=== PATIENT | female | born 1970 | race Caucasian/White ===

== ENCOUNTER 2019-07-23 10:51 | Emergency (ER) | payer BC ==
--- OUTSIDE RECORDS SUMMARY | 2019-07-23 11:10 | XMS REPORT | Summary of Care ---
:1970 Author Organization [facility] Address [address] [address] Care Team Providers Name Role Phone Kelsie Branham MD Primary Care Provider Reason for Referral Refer to Department Only (Routine) Status Reason Specialty Diagnoses / Referred By Referred To Procedures Contact Contact Pending Review Physical Therapy Diagnoses Rotator cuff tendinitis, right Santhosh Douglass MD [address] [facility] [place] [address] [place] [address] Reason for Visit Reason Comments Follow Up Right shoulder pain. Patient is here to discuss MRI results. Encounter Details Date Type Department Care Team Description 07/09/2019 Office Visit [facility] - Santhosh Douglass MD Rotator cuff [address] tendinitis, right [address] [facility] [address] (Primary Dx) [place] [address] [phone] Allergies No Known Allergiesdocumented as of this encounter (statuses as of 07/10/2019) Medications Medication Sig Dispensed Refills Start Date End Date Status Nebivolol HCl Bystolic 5 mg tablet 0 Active (BYSTOLIC) 5 MG Oral Take 1 tablet every day by oral route. Tab Polyethylene Glycol Take by mouth. 0 Active 3350 (MIRALAX PO) ranitidine (ZANTAC) Take 150 mg by 0 Active 150 MG Oral Tab mouth. documented as of this encounter (statuses as of 07/10/2019) Active Problems Not on filedocumented as of this encounter (statuses as of 07/10/2019) Social History Tobacco Use Types Packs/Day Years Used Date Never Smoker Smokeless Tobacco: Never Used Sex Assigned at Date Recorded Not on file Job Start Date Occupation Industry Not on file Not on file Not on file Travel History Travel Start Travel End No recent travel history available. documented as of this encounter Last Filed Vital Signs Vital Sign Reading Time Taken Comments Blood Pressure 134/81 07/09/2019 9:08 AM EDT Pulse 70 07/09/2019 9:08 AM EDT Temperature - - Respiratory Rate - - Oxygen Saturation - - Inhaled Oxygen Concentration - - Weight 106.6 kg (235 lb) 07/09/2019 9:08 AM EDT Height 167.6 cm (5' 6") 07/09/2019 9:08 AM EDT Body Mass Index 37.93 07/09/2019 9:08 AM EDT documented in this encounter Progress Notes Santohsh Douglass MD - 07/09/2019 9:00 AM EDT Name: Bao Cramer : 1970 Date of Service: 07/09/2019 Chief Complaint Patient presents with Follow Up Right shoulder pain. Patient is here to discuss MRI results. History of Present Illness: Bao Cramer is a 49-y.o. female. The above is noted. Patient is in today for follow-up of right shoulder rotator cuff tendinitis. Patient was last seen in the office on 06/17/2019. She has had a recent MRI for me to evaluate whichis available to me today Physical Examination: BP 134/81 | Pulse 70 | Ht 5' 6" (1.676 m) | Wt 235 lb (106.6 kg) | BMI 37.93 kg/m Well-developed well-nourished female in minimal discomfort at rest. Patient has tenderness on the following range of motion forward elevation 100 degrees abduction 130 degrees. MRI reveals evidence of rotator cuff tendinitis. Patient has not had a course of physical therapy. Impression: 1. Rotator cuff tendinitis, right Plan: Will refer patient for physical therapy and the patient will follow up with Romina Wan in 6 weeks. All questions were answered. There are no Patient Instructions on file for this visit. Author: Santhosh Douglass MD 07/10/2019 19:34 documented in this encounter Plan of Treatment Date Type Specialty Care Team Description 08/20/2019 Office Visit Orthopedics Romina Wan, [facility] [address] [place] [address] Name Type Priority Associated Diagnoses Order Schedule REFER TO PHYSICAL Referral Routine Rotator cuff tendinitis, Expected: 07/09, THERAPY / REHAB right Expires: 07/08/2020 Health Maintenance Due Date Last Done Comments PAP SMEAR 1970 DEPRESSION SCREENING 1982 HIV SCREENING 1985 DIABETES SCREENING 1988 LIPID DISORDER SCREENING 1988 MAMMOGRAM (SCREENING) 2010 INFLUENZA VACCINE (#1) 2019 HPV IMMUNIZATION SERIES Aged Out No longer eligible based on patient's age to complete this topic MENINGOCOCCAL VACCINE IMM Aged Out No longer eligible based on patient's age to complete this topic PNEUMOCOCCAL 0-64 YRS Aged Out No longer eligible based on patient's age to complete this topic documented as of this encounter Results Not on filedocumented in this encounter Visit Diagnoses Diagnosis Rotator cuff tendinitis, right - Primary documented in this encounter Insurance Payer Benefit Plan / Subscriber ID Effective Dates Phone Address Type Group [employer] xxxxxxxxxxxx 2019-Present [employer] documented as of this encounter
--- NOTE | 2019-07-23 13:00 | ED ---
Back Pain - HPI Summary HPI Summary: Patient is a 49-year-old female who presents emergency department for low back pain x several days. Pt. states she has a hx of back pain and had an MRI last year that showed disc herniation. Pt. recently new to the area. Pt. denies any specific falls or injury. Pt. states last week she was having pain on right low back and today it is on the left. Pain wraps around into groin. Denies numbness , tingling or weakness. Denies fever, urinary sxs, abd. pain, bowel or bladder incontinence or retention. Sxs are mild in severity. Movement makes sxs worse. Nothing makes sxs better. - History of Current Complaint Chief Complaint: EDBackInjuryPain Stated Complaint: THREW BACK OUT PER PT Time Seen by Provider: 07/23/19 12:59 Hx Obtained From: Patient Pain Intensity: 9 - Allergies/Home Medications Allergies/Adverse Reactions: Allergies Allergy/AdvReac Type Severity Reaction Status Date / Time No Known Allergies Allergy Verified 07/23/19 10:56 Home Medications: Home Medications Nebivolol HCl [Bystolic] 5 mg PO BEDTIME 07/23/19 [History Confirmed 07/23/19] PMH/Surg Hx/FS Hx/Imm Hx Previously Healthy: Yes Infectious Disease History: No Infectious Disease History: Denies: Traveled Outside the [place] in Last 30 Days - Family History Known Family History: Positive: Non-Contributory - Social History Occupation: Employed Full-time Lives: With Family Alcohol Use: None Substance Use Type: Reports: None Smoking Status (MU): Never Smoked Tobacco Review of Systems Constitutional: Negative Negative: Fever, Chills Cardiovascular: Negative Respiratory: Negative Gastrointestinal: Negative Genitourinary: Negative Negative: dysuria, flank pain Positive: Other - left low back pain Skin: Negative All Other Systems Reviewed And Are Negative: Yes Physical Exam Triage Information Reviewed: Yes Vital Signs On Initial Exam: Initial Vitals Temp Pulse Resp BP Pulse Ox 98.6 F 67 18 135/93 100 07/23/19 10:52 07/23/19 10:52 07/23/19 10:52 07/23/19 10:52 07/23/19 10:52 Vital Signs Reviewed: Yes Appearance: Positive: Well-Appearing - Pt. lying in hallway bed in NAD. Skin: Positive: Warm, Dry Head/Face: Positive: Normal Head/Face Inspection Eyes: Positive: Normal, EOMI Neck: Positive: Supple Respiratory/Lung Sounds: Positive: Clear to Auscultation, Breath Sounds Present Cardiovascular: Positive: Normal, RRR Musculoskeletal: Positive: Other - 5/5 strength in bilateral UEs and LEs. Negative straight leg. No midline lumbar tenderness. Pain over left SI joint. Neurological: Positive: Normal, CN Intact II-III Psychiatric: Positive: Affect/Mood Appropriate Diagnostics - Vital Signs Vital Signs Temp Pulse Resp BP Pulse Ox 07/23/19 10:52 98.6 F 67 18 135/93 100 - Laboratory Lab Statement: Any lab studies that have been ordered have been reviewed, and results considered in the medical decision making process. Back Pain Course/Dx - Course Course Of Treatment: Pt. with low back pain. No neuro deficits. Afebrile. xrays of spine and hip negative per radiology. Pt. notes she does not like to take medication and states she cannot take NSAIDS bc of GI issues. Will try on course of steroids. Advised warm compresses and gentle stretching. P.t notes she has an apt. with neuro sxs at [facility] coming up. Given return precautions. - Diagnoses Differential Diagnosis/HQI/PQRI: Positive: Arthritis, Epidural Abscess, Herniated Disc, Renal Colic, Strain, Sprain Provider Diagnoses: Lumbar strain, Sacroiliitis Discharge ED - Sign-Out/Discharge Documenting (check all that apply): Patient Departure Patient Received Moderate/Deep Sedation with Procedure: No - Discharge Plan Condition: Good Disposition: HOME Prescriptions: predniSONE TAB* [Deltasone 20 MG TAB*] 40 mg PO DAILY #10 tab Patient Education Materials: Low Back Strain (ED), Sacroiliitis (ED), Lower Back Exercises (ED) Referrals: Fausto Haider [Medical Doctor] - Kelsie Branham MD [Primary Care Provider] - Patricia Duque MD [Medical Doctor] - Additional Instructions: Schedule a follow up appointment with PCP for further evaluation and referral Take prednisone as directed Tylenol for pain as directed Apply warm compresses Return to ER for increased pain, fever, leg numbness/weakness, bowel or bladder incontinence or retention, or if concerned - Billing Disposition and Condition Condition: GOOD Disposition: Home
[2019-07-23 15:44] VITALS: BP 134/76
== END 2019-07-23 15:05 | disposition home or self-care (01) ==
LOC: MERGE 10:51 → ED 10:51
DX: S39.012A Strain of muscle, fascia and tendon of lower back, initial encounter (principal); X58.XXXA Exposure to other specified factors, initial encounter; Y92.9 Unspecified place or not applicable; M46.1 Sacroiliitis, not elsewhere classified
CPT/HCPCS: 72110; 99282

== ENCOUNTER 2020-01-08 08:53 | Emergency (ER) | payer BC ==
--- OUTSIDE RECORDS SUMMARY | 2020-01-08 09:04 | XMS REPORT | Summary of Care ---
:1970 Author Organization [facility] Address [address] [facility] [address] [place] [address] Care Team Providers Name Role Phone Kelsie Branham MD Primary Care Provider Reason for Visit Reason Comments Follow Up Right shoulder pain. Patient states her right shoulder is doing a lot better, still a little sore, but better. Patient is not sure exactly how the injection worked. Encounter Details Date Type Department Care Team Description 11/26/2019 Office Visit [facility] - Santhosh Douglass MD Rotator cuff [place] [address] [facility] tendinitis, right [address] [facility] [address] (Primary [address]x) [place] [address] [place] [address] [phone] Allergies No Known Allergiesdocumented as of this encounter (statuses as of 12/04/2019) Medications Medication Sig Dispensed Refills Start Date End Date Status Nebivolol HCl Bystolic 5 mg tablet 0 Active (BYSTOLIC) 5 MG Oral Take 1 tablet every day by oral route. Tab Polyethylene Glycol Take by mouth. 0 Active 3350 (MIRALAX PO) OMEPRAZOLE PO Take by mouth. 0 Active documented as of this encounter (statuses as of 12/04/2019) Active Problems Problem Noted Date Rotator cuff tendinitis, right 09/23/2019 Low back pain 10/09/2018 History of hypertension 10/09/2018 Neck pain 10/09/2018 documented as of this encounter (statuses as of 12/04/2019) Social History Tobacco Use Types Packs/Day Years [...] Sign Reading Time Taken Comments Blood Pressure 120/76 11/26/2019 2:53 PM EST Pulse 67 11/26/2019 2:53 PM EST Temperature - - Respiratory Rate - - Oxygen Saturation - - Inhaled Oxygen Concentration - - Weight 106.6 kg (235 lb) 11/26/2019 2:53 PM EST Height 167.6 cm (5' 6") 11/26/2019 2:53 PM EST Body Mass Index 37.93 11/26/2019 2:53 PM EST documented in this encounter Progress Notes Santhosh Douglass MD - 11/26/2019 3:00 PM EST Name: Bao Cramer : 1970 Date of Service: 11/26/2019 Chief Complaint Patient presents with Follow Up Right shoulder pain. Patient states her right shoulder is doing a lot better, still a little sore,but better. Patient is not sure exactly how the injection worked. History of Present Illness: Bao Cramer is a 49-y.o. female. The above is noted. Is in today for follow-up of right shoulder discomfort. She was last seen by Romina Wan. The patient had an injection of her right shoulder and she states that she is uncertain as to how effective the shoulder injection was. Physical Examination: BP 120/76 | Pulse 67 | Ht 5' 6" (1.676 m) | Wt 235 lb (106.6 kg) | BMI 37.93 kg/m Well-developed well-nourished female in minimal discomfort at rest. Patient is neurovascularly intact. Patient has forward elevation of right shoulder 180 degrees abduction 170 degrees. Patient is neurovascularly intact. Mild discomfort on palpation of her anterior inferior acromion. Impression: Patient will perform rotator cuff exercises in PT and the plan is to follow-up with Dania Wan in 4 weeks Plan: Follow up in 4 weeks All questions were answered. There are no Patient Instructions on file for this visit. Author: Santhosh Douglass MD 11/26/2019 15:00 documented in this encounter Plan of Treatment Date Type Specialty Care Team Description 12/24/2019 Office Visit [facility]oped[facility] Romina Wan, [facility] [address] [facility] [place] [address] Health Maintenance Due Date Last Done Comments DTaP/Tdap/Td Vaccines (1 - Tdap) 1981 DEPRESSION SCREENING 1982 HIV SCREENING 1985 DIABETES SCREENING 1988 LIPID DISORDER SCREENING 1988 PAP SMEAR 1991 MAMMOGRAM (SCREENING) 2010 INFLUENZA VACCINE (#1) 2019 HEPATITIS A IMMUNIZATION SERIES Aged Out No longer eligible based on patient's age to complete this topic HPV IMMUNIZATION SERIES Aged Out No longer [...] Visit Diagnoses Diagnosis Rotator cuff tendinitis, right documented in this encounter Insurance Payer Benefit Plan / Subscriber ID Effective Dates Phone Address Type Group [employer] xxxxxxxxxxxx 2019-Present [employer] documented as of this encounter
--- OUTSIDE RECORDS SUMMARY | 2020-01-08 09:04 | XMS REPORT | Continuity of Care Document ---
:1970 External Reference #:[id number] Author Name Heather Funez MD (transmitted by agent of provider Deborah Reeves) Address [address] [facility], [address] [place] [id number] Care Team Providers Name Role Phone Desiree Benton MD - Obstetrics & Care Team Information Linoleum Installer Gynecology Kelsie Branham M.D. - Family Medicine Care Team Information Linoleum Installer Problems Active Problems Provider Date Essential hypertension Aimee Og MD Onset: 09/26/2019 Menopausal syndrome Aimee Og MD Onset: 09/26/2019 Social History Type Date Description Comments Sex Unknown Tobacco Use Start: Unknown Never Smoked Cigarettes ETOH Use Denies alcohol use Tobacco Use Start: Unknown Patient has never smoked Recreational Drug Use Never Used Drugs Tobacco Use Start: Unknown smokes outside Smoking Status Reviewed: 11/19/19 smokes outside Exercise Type/Frequency Does not exercise Limited by back pain Allergies, Adverse Reactions, Alerts Description No Known Drug Allergies Medications Active Medications SIG Qnty Indications Ordering Date Provider Ventolin HFA 2 every 4 hours 18gm R05 Howard Smart MD 11/05/2019 as needed 108(90Base) mcg/Act Aerosol Estradiol 0.5gram vaginally 42.500gm N39.3 Desiree Benton 09/23/2019 0.1mg/GM every night at Cream bedtime x 14 nights then 2x/week (not yet 11/05/19) Bystolic 1 by mouth every 90tabs Kelsie Branham MD 03/29/2019 5mg Tablets day Omeprazole 1 by mouth every 90caps Aimee Og 03/29/[address] Wright take 1-2 as 30tabs Kelsie Branham MD 03/29/2019 0.25mg needed Tablets Maxalt-FOUNDER / CEO one as needed for Other Ordering 03/29/2019 10mg Pearson, may repeat in Provider Tablets Dispers 2 hrs. Max 2 in 24 hr Tylenol Extra 1 tabs by mouth Unknown Strength every 6 hours as 500mg needed Tablets Cortisone Injection As needed Unknown Immunizations CPT Code Status Date Vaccine Reaction Lot # 96534 Given 11/19/2019 Influenza Virus Vaccine, No immmediate reaction [id number] Quadrivalent ([id number]), Derived From Cell 48270 Given 03/29/2019 Hepatitis B Vaccine Adult No immediate [id number] Dosage reaction..jh Vital Signs Date Vital Result Comment 11/19/2019 4:03pm Height 65.75 inches 5'5.75" Weight 236.00 lb Heart Rate 70 /min BP Systolic Sitting 114 mmHg BP Diastolic Sitting 79 mmHg Body Temperature 99.1 F O2 % BldC Oximetry 98 % BMI (Body Mass Index) 38.4 kg/m2 11/05/2019 2:13pm Height 65.75 inches 5'5.75" Weight 236.25 lb Heart Rate 76 /min BP Systolic Sitting 122 mmHg Lue large cuff BP Diastolic Sitting 92 mmHg Lue large cuff O2 % BldC Oximetry 98 % On Ra BMI (Body Mass Index) 38.4 kg/m2 Results Test Acquired Date Facility Test Result H/L Range Note Lipid Profile 11/18/2019 [facility] Triglycerides 126 mg/dL 1 (Trig/Chol/HDL) [address] [place] [address] [phone] Cholesterol 202 mg/dL 2 HDL Cholesterol 55.6 mg/dL 3 LDL Cholesterol 121 mg/dL 4 Comp Metabolic 11/18/2019 [facility] Sodium 141 mmol/L Normal 135-145 Panel [address] [place] [address] [phone] Potassium 4.6 mmol/L Normal 3.5-5.0 Chloride 103 mmol/L Normal 101-111 Co2 Carbon Dioxide 32 mmol/L Normal 22-32 Anion Gap 6 mmol/L Normal 2-11 Glucose 97 mg/dL Normal 70-100 Blood Urea Nitrogen 13 mg/dL Normal 6-24 Creatinine 0.77 mg/dL Normal 0.51-0.95 BUN/Creatinine Ratio 16.9 Normal 8-20 Calcium 9.8 mg/dL Normal 8.6-10.3 Total Protein 7.1 g/dL Normal 6.4-8.9 Albumin 4.1 g/dL Normal 3.2-5.2 Globulin 3.0 g/dL Normal 2-4 Albumin/Globulin Ratio 1.4 Normal 1-3 Total Bilirubin 0.30 mg/dL Normal 0.2-1.0 Alkaline Phosphatase 93 U/L Normal 34-104 Alt 25 U/L Normal 7-52 Ast 12 U/L Low 13-39 Egfr Non- 79.7 >60 Egfr 96.4 >60 5 Laboratory test 11/18/2019 [facility] Vitamin D 22.4 ng/mL Normal 20-50 [address] Total [address](Oh) [place] [address] [phone] Cytology 09/23/2019 [facility] Cytology SEE RESULT [address] [place] [address] [phone] PDFReport SEE IMAGE Urine Culture And 06/17/2019 [facility] Urine Culture SEE RESULT [address] [place] [address] [phone] Ua Routine 06/17/2019 Staging Technician In House Ua Specific 1.020 [place] Ua PH 7 Ua Color light yellow Ua Appera clear Ua WBC - Ua Protein - Ua Glucose - Ua Ketones - Ua Bilirubin - Ua Urobilinogen - Ua Nitrite - Ua Occult Blood - 1 Desirable: <150 Borderline High: 150-199 High: 200-499 Very High: >500 2 Desirable: <200 Borderline High: 200-239 High: >239 3 Low: <40 Desirable: 40-60 High: >60 4 Desirable: <100 Near Optimal: 100-129 Borderline High: 130-159 High: 160-189 Very High: >189 5 Because ethnic data is not always readily available, this report includes an eGFR for both -Americans and non- Americans. The National Kidney Disease Education Program (NKDEP) does not endorse the use of the MDRD equation for patients that are not between the ages of 18 and 70, are , have extremes of body size, muscle mass, or nutritional status, or are non- or non-. According to the National Kidney Foundation, irrespective of diagnosis, the stage of the disease is based on the level of kidney function: Stage Description GFR(mL/min/1.73 m(2)) 1 Kidney damage with normal or decreased GFR 90 2 Kidney damage with mild decrease in GFR 60-89 3 Moderate decrease in GFR 30-59 4 Severe decrease in GFR 15-29 5 Kidney failure <15 (or dialysis) 6 Total 25-Hydroxyvitamin D2 and D3 (25-OH-VitD) <10 ng/mL (severe deficiency) 10-19 ng/mL (mild to moderate deficiency) 20-50 ng/mL (optimum levels) 51-80 ng/mL (increased risk of hypercalciuria) >80 ng/mL (toxicity possible) 7 SEE RESULT BELOW Name: KAMINI CRAMER : [address]: Desiree Benton MD Acct: [id number] Unit: [id number] AGE: 49 Location: [facility] Re09/23/19 SEX: F Status: REG REF SPEC: [id number] ENZO: 09/23/19-[address]: Desiree Benton MD REQ: [id number] RECD: 09/23/19790 STATUS: SOUT _ ORDERED: TP IMAGE ANALYS, HPV/Thin Prep, HPV 16/18 GENE COMMENTS: [id number] FINAL DIAGNOSIS Negative for Intraepithelial lesion or Malignancy HPV RESULTS Date Time Test Result Flag (u) Normal Range 09/23/19 1059 HPV KEN RFLX GE Negative Negative The high-risk HPV types detected by the assay include: 16, 18, 31, 33, 35, 39, 45, 51, 52, 56, 58, 59, 66, and 68. SPECIMEN(S) RECEIVED A. Ectocervical/Endocervical CYTOLOGY ADEQUACY Specimen Adequacy: Satisfactory of evaluation Transformation zone component identified CONTINUED ON NEXT PAGE DEPARTMENT OF PATHOLOGY, [address] [place] [address] Jesus Manuel Blackburn M.D. Director [facility] # [id number] CYTOLOGY PATIENT INFORMATION Patient Information: HPV: High risk HPV RNA testing regardless of pap results. HPV 16/18 Genotype Reflex Actual Specimen Date: 09/23/19 Last Menstrual Date: 10/20/17 ?: N Post Menopausal?: N Hysterectomy?: N Signed by and Reported on: KARMEN Clark(ASCP) 1013 This Pap test was evaluated with the assistance of the MedicinaPrep Test Imaging System. Due to cytologic findings at the manager of recruiting microscope, comprehensive manual rescreening by a Sr. Vendor Management Associate may be required. The Pap Smear is a screening test designed to aid in the detection of premalignant and malignant conditions of the uterine cervix. It is not a diagnostic procedure and should not be used as the sole means of detecting cervical cancer. Both false- positive and false- negative reports do occur. Depending on your risk status, a Pap smear should be obtained and evaluated every 1-3 years. END OF REPORT DEPARTMENT OF PATHOLOGY, [address] [place] [address] Jesus Manuel Blackburn M.D. Director [facility] # [id number] SEE RESULT BELOW Name: KAMINI CRAMER : [address]: Kelsie Branham MD Acct: [id number] Unit: [id number] AGE: 49 Location: [facility] Re06/17/19 SEX: F Status: REG REF SPEC: [id number] ENZO: 06/17/19-[address] [facility] [address]: Kelsie Branham MD REQ: [id number] RECD: 06/17/19 STATUS: COMP _ SOURCE: URINE SPDESC: ORDERED: Urine Culture COMMENTS: [id number] Procedure Result Reported Site Urine Culture Final 06/18/19- 1607 ML No Growth (<1,000 CFU/mL) * ML - Main Lab . END OF REPORT DEPARTMENT OF PATHOLOGY, [address] [place] [address] Jesus Manuel Blackburn M.D. Director [facility] # [id number] Procedures Date Code Description Status 09/26/2019 17764 EKG Tracing & Interpretation Completed 06/24/2019 42438 ECHO Transthoracic, Real-Time 2D With Doppler And Color Completed Flow 06/24/2019 65096 ECHO Transthoracic, Real-Time 2D With Doppler And Color Completed Flow 12/21/2018 30384706 Mammogram Completed 11/20/2016 21567835 Colonoscopy Completed Medical Devices Description No Information Available Encounters Type Date Location Provider Dx Diagnosis Office Visit 11/05/2019 2:45p Pulmonology And Sleep Howard Smart MD R05 [facility] J45.998 Other asthma G47.30 Sleep apnea, unspecified Office Visit 06/17/2019 11:00a [facility] Internal Kelsie Branham, R01.1 Cardiac murmur, Medicine - [facility] unspecified R30.0 Dysuria Assessments Date Code Description Provider 11/19/2019 Z00.00 Encounter for general adult medical Heather Funez MD examination without abnormal findings 11/19/2019 I10 Essential (primary) hypertension Heather Funez MD 11/19/2019 E66.9 Obesity, unspecified Haether Funez MD 11/19/2019 E04.1 Nontoxic single thyroid nodule Heather Funez MD 11/19/2019 F41.9 Anxiety disorder, unspecified Heather Funez MD 11/05/2019 R05 Cough Howard Smart MD 11/05/2019 J45.998 Other asthma Howard Smart MD 11/05/2019 G47.30 Sleep apnea, unspecified Howard Smart MD 09/26/2019 R05 Cough Aimee Og MD 09/26/2019 R07.89 Other chest pain Aimee Og MD 09/26/2019 R94.31 Abnormal electrocardiogram [ECG] Aimee Og MD [EKG] 09/23/2019 Z01.419 Encounter for gynecological Desiree Benton MD examination (general) (routine) without abnormal findings 09/23/2019 Z87.440 Personal history of urinary (tract) Desiree Benton MD infections 09/23/2019 N39.3 Stress incontinence (female) (male) Desiree Benton MD 09/23/2019 Z12.31 Encounter for screening mammogram for Desiree Benton MD malignant neoplasm of breast 09/23/2019 N64.59 Other signs and symptoms in breast Desiree Benton MD 09/23/2019 Z11.51 Encounter for screening for human Desiree Benton MD papillomavirus (HPV) 09/23/2019 D25.9 Leiomyoma of uterus, unspecified Desiree Benton MD 06/24/2019 R01.1 Cardiac murmur, unspecified Samir Mata M.D., [facility] 06/24/2019 R01.1 Cardiac murmur, unspecified Traveling ECHO 2 06/17/2019 R01.1 Cardiac murmur, unspecified Kelsie Branham MD 06/17/2019 R30.0 Dysuria Kelsie Branham MD Plan of Treatment Future Appointment(s):05/19/2020 4:40 pm - Kelsie Branham MD at [facility] Internal Medicine - [facility]cm[facility]12/31/2019 2:30 pm - Mally Hunt MD at [facility] Pdbyyzrenke70/31 /2019 - Heather Funez MDZ00.00 Encounter for general adult medical examination without abnormal findingsComments:VACCINES:Flu shot every year in the fall.Tetanus: DueMammogram: scheduledPap smear: last one done 2312E70 Essential (primary) hypertensionComments:Your blood pressure is fine. Continue the same medicationFollow up:F/U [address] Dhaliwal66.9 Obesity, unspecifiedComments:Please try to lose mcrpzqK97.1 Nontoxic single thyroid sjtiomR25.9 Anxiety disorder, unspecifiedReferral:[facility] Mental Health , Mental Health/Counselor Functional Status Description No Information Available Mental Status Description No Information Available Referrals Refer to Reason for Referral Status Appt Date [facility] Anxiety and depression; multiple Created somatic symptoms [address] [place] [address] [phone] Nayely White MD Sent 11/05/[address] [place] [phone] Dawna Rich MD Recurrent UTI, feels gas passing through Sent urethra. Hx recurrent Diverticulitis. ?[address] [place] [address] [phone] Caitlyn Faria, PT, OCS Sent [address] [place] [address] [phone]
--- OUTSIDE RECORDS SUMMARY | 2020-01-08 09:04 | XMS REPORT | Summary of Care ---
:1970 Author Organization [facility] Address [address] [place] [address] Care Team Providers Name Role Phone Kelsie Branham MD Primary Care Provider Reason for Referral Refer to Department Only (Routine) Status Reason Specialty Diagnoses / Referred By Referred To Procedures Contact Contact Pending Review Physical Therapy Diagnoses Rotator cuff tendinitis, right Romina Wan, RPA-C [address] [facility] [place] [address] [place] [address] Reason for Visit Reason Comments Follow Up 4 wk f/u right shoulder RCR. Patient states her right shoulder is not doing so good and she is still in pain. She complains of snaps and hurts and PT did not help. Encounter Details Date Type Department Care Team Description 12/23/2019 Office Visit [facility] - Romina Wan, Rotator cuff [place] RPA-C tendinitis, right [address] [facility] [address] [facility] (Primary Dx) [address] [facility] [place] [address] [place] [address] [phone] Allergies No Known Allergiesdocumented as of this encounter (statuses as of 12/23/2019) Medications Medication Sig Dispensed Refills Start Date End Date Status Nebivolol HCl Bystolic 5 mg tablet 0 Active (BYSTOLIC) 5 MG Oral Take 1 tablet every day by oral route. Tab Polyethylene Glycol Take by mouth. 0 Active 3350 (MIRALAX PO) OMEPRAZOLE PO Take by mouth. 0 Active documented as of this encounter (statuses as of 12/23/2019) Active Problems Problem Noted Date Rotator cuff tendinitis, right 09/23/2019 Low back pain 10/09/2018 History of hypertension 10/09/2018 Neck pain 10/09/2018 documented as of this encounter (statuses as of 12/23/2019) Social History Tobacco Use Types Packs/Day Years [...] Sign Reading Time Taken Comments Blood Pressure 118/68 12/23/2019 2:38 PM EST Pulse 95 12/23/2019 2:38 PM EST Temperature - - Respiratory Rate - - Oxygen Saturation - - Inhaled Oxygen Concentration - - Weight 106.6 kg (235 lb) 12/23/2019 2:38 PM EST Height 167.6 cm (5' 6") 12/23/2019 2:38 PM EST Body Mass Index 37.93 12/23/2019 2:38 PM EST documented in this encounter Progress Notes Romina Wan RPA-C - 12/23/2019 2:45 PM EST Patient: Bao Cramer : 1970 Date of Service: 12/23/2019 Chief Complaint Patient presents with Follow Up 4 wk f/u right shoulder RCR. Patient states her right shoulder is not doing so good and she is still in pain. She complains of snaps and hurts and PT did not help. HPI: Bao Cramer is a 49-y.o. female who is here for follow up from her right shoulder pain. Denies fever, chills, constitutional symptoms. Pain is overall similar to last visit and without significant improvement. States injection did not help much and physical therapy is not helping anymore.States it is painful, pops and cracks. Physical Exam: Shoulder: Range of motion of the right shoulder demonstrates Forward elevation to 150, Abduction to 140 . There is crepitus throughout range of motion. There is pain at extremes of motion. Patient is tender over the anterior lateral aspect of the right shoulder. Neurological: Sensation is intact to the hand. Vascular: Radial pulse is present. Hand swelling of the right absent. Skin condition to the rightupper extremity is unremarkable and intact. Impression: ICD-9-CM ICD-10-CM 1. Rotator cuff tendinitis, right 726.10 M75.81 REFER TO PHYSICAL THERAPY / REHAB Plan: The diagnosis was discussed with the patient. Discussed surgical intervention. We would have to wait until after February 02 do to the cortisone injection. States she is going to [place] at the end of January. She would wait until after then. She would like to try more pt. She was given a script. Will follow up prior to her leaving for [place]. Author: MARÍA Darden 12/23/2019 15:07 documented in this encounter Plan of Treatment Date Type Specialty Care Team Description 01/20/2020 Office Visit Orthopedics Santhosh Douglass MD [address] [place] [address] [phone] Name Type Priority Associated Diagnoses Order Schedule REFER TO PHYSICAL Referral Routine Rotator cuff 99 Occurrences starting THERAPY / REHAB tendinitis, right 12/23/2019 until 12/23/2020 Health Maintenance Due Date Last Done Comments [...] Dates Phone Address Type Group [employer] xxxxxxxxxxxx 2019-Present [employer] documented as of this encounter
--- OUTSIDE RECORDS SUMMARY | 2020-01-08 09:04 | XMS REPORT | Continuity of Care Document ---
:1970 External Reference #:[id number] Author Name Emilee Abarca PA-C Address [address] [place] [address] Care Team Providers Name Role Phone Kelsie Branham M.D. Care Team Information Angiography Technologist [phone] Problems Active Problems Provider Date Hemorrhoids without complication Emilee Abarca PA-C Onset: 01/01/2020 Irritable bowel syndrome characterized Emilee Abarca PA-C Onset: 10/2020 by constipation Social History Type Date Description Comments Sex Unknown Tobacco Use Start: Unknown Patient has never smoked Smoking Status Reviewed: 01/01/20 Patient has never smoked Allergies, Adverse Reactions, Alerts Description No Known Drug Allergies Medications Active Medications SIG Qnty Indications Ordering Date Provider Hydrocortisone apply to the anus 30gm K64.8 Damien D. 01/01/2020 2.5% as needed two times MD Rachel Cream daily for 1-2 weeks Bystolic 1 by mouth every 90tabs Branham , 03/29/2019 5mg Tablets day M.D. Omeprazole 1 by mouth every 90caps Branham , 03/29/2019 40mg day (taking as M.D. Capsules DR needed) Alprazolam 30tabs Branham , 03/29/2019 0.25mg M.D. Tablets Miralax take 1 packet daily 30units Branham , 03/29/2019 3350NF Powder as needed for M.D. constipation Maxalt-MORTGAGE FIELD INSPECTOR one as needed for Unknown 03/29/2019 10mg Tablets Pearson, may repeat in 2 Dispers hrs. Max 2 in 24 hr KP Vitamin D3 one daily Unknown 50mcg (2000 Ut) Capsules History Medications Amoxicillin/Clavulanate twice a day 20tabs Jack Gomez, 11/14/2019 - Potassium x10 days DO 01/01/2020 875-125mg Tablets Immunizations CPT Code Status Date Vaccine Lot # [id number] Given 03/29/2019 Hepatitis B [employer] For Intramuscular Use Vital Signs Date Vital Result Comment 01/01/2020 8:40am Height 66 inches 5'6" Weight 238.00 lb BMI (Body Mass Index) 38.4 kg/m2 11/04/2019 9:54am Height 66 inches 5'6" Weight 237.00 lb BP Systolic 139 mmHg BP Diastolic 89 mmHg Heart Rate 68 /min BMI (Body Mass Index) 38.2 kg/m2 Results Description No Information Available Procedures Description No Information Available Medical Devices Description No Information Available Encounters Type Date Location Provider Dx Diagnosis Office Visit 11/04/2019 Gastroenterology Jack Patricia, K30 Functional 10:00a [facility] DO dyspepsia K58.2 Mixed irritable bowel syndrome K21.9 Gastro-esophageal reflux disease without esophagitis E66.9 Obesity, unspecified Assessments Date Code Description Provider 01/01/2020 K64.8 Other hemorrhoids Emilee Abarca PA-C 01/01/2020 K58.1 Irritable bowel syndrome with Emilee Abarca PA-C constipation 11/04/2019 K30 Functional dyspepsia Jack Gomez, DO 11/04/2019 K58.2 Mixed irritable bowel syndrome Jack Gomez, DO 11/04/2019 K21.9 Gastro-esophageal reflux disease without Jack Gomez, DO esophagitis 11/04/2019 E66.9 Obesity, unspecified Jack Boyerrdan, DO Plan of Treatment Future Appointment(s):04/17/2020 3:00 pm - Jack [facility]01/01/2020 - GREG Chao CK64.8 Other hemorrhoidsNew Medication:Hydrocortisone 2.5 % - apply to the anus as needed two times daily for 1-2 gguomB35.1 Irritable bowel syndrome with constipation Functional Status Description No Information Available Mental Status Description No Information Available Referrals Description No Information Available
[2020-01-08 09:21] LABS: Rapid Strep Molecular Negative (Negative)
--- NOTE | 2020-01-08 09:28 | ED ---
Abdominal Pain/Male - HPI Summary HPI Summary: Pt. is a 49 y.o female who presents to the ER for lower abd. pain, diarrhea, nausea, and sore throat x several days. Pt. notes hx of diverticulitis. Denies cp, sob, fever. Not occasional BRB in stools from hemorrhoids. Sxs Sxs are moderate in severity. No current modifying factors. - History of Current Complaint Chief Complaint: EDNauseaVomitDiarrh Stated Complaint: ABD PAIN PER PT Time Seen by Provider: 01/08/20 09:28 Hx Obtained From: Patient Pain Intensity: 7 - Allergies/Home Medications Allergies/Adverse Reactions: Allergies Allergy/AdvReac Type Severity Reaction Status Date / Time No Known Allergies Allergy Verified 01/08/20 08:57 Home Medications: Home Medications Nebivolol HCl [Bystolic] 5 mg PO BEDTIME 07/23/19 [History Confirmed 01/08/20] Amoxicillin/Clavulanate TAB* [Augmentin TAB 875*] 875 mg PO BID #20 tab [Rx] Omeprazole (Nf) [Prilosec (NF)] 40 mg PO DAILY 01/08/20 [History Confirmed 01/08] Polyethylene Glycol 3350* [Miralax (17 GM DOSE SONIA)] 17 gm PO DAILY 01/08/20 [ History Confirmed 01/08/20] PMH/Surg Hx/FS Hx/Imm Hx Previously Healthy: Yes Endocrine/Hematology History: Denies: Hx Diabetes Cardiovascular History: Reports: Hx Hypertension - ON MEDS Denies: Hx Pacemaker/ICD History: Denies: Hx Renal Disease Sensory History: Denies: Hx Hearing Aid Psychiatric History: Denies: Hx Panic Disorder - Surgical History Surgery Procedure, Year, and Place: GALLBLADDER. RIGHT BREAST BIOPSY Infectious Disease History: No Infectious Disease History: Denies: Traveled Outside the [place] in Last 30 Days - Family History Known Family History: Positive: Non-Contributory - Social History Occupation: Employed Full-time Lives: With Family Alcohol Use: None Substance Use Type: Reports: None Smoking Status (MU): Never Smoked Tobacco Review of Systems - ROS Summary Review of Systems Summary: Nebivolol HCl [Bystolic] 5 mg PO BEDTIME 07/23/19 [History Confirmed 01/08/20] Amoxicillin/Clavulanate TAB* [Augmentin TAB 875*] 875 mg PO BID #20 tab [Rx] Omeprazole (Nf) [Prilosec (NF)] 40 mg PO DAILY 01/08/20 [History Confirmed 01/08] Polyethylene Glycol 3350* [Miralax (17 GM DOSE SONIA)] 17 gm PO DAILY 01/08/20 [ History Confirmed 01/08/20] Constitutional: Negative Negative: Fever Cardiovascular: Negative Negative: Chest Pain Respiratory: Negative Negative: Shortness Of Breath, Cough Positive: Abdominal Pain, Diarrhea, Nausea Genitourinary: Negative Negative: dysuria Neurological/Mental Status: Negative All Other Systems Reviewed And Are Negative: Yes Physical Exam Triage Information Reviewed: Yes Vital Signs On Initial Exam: Initial Vitals Temp Pulse Resp BP Pulse Ox 98.2 F 79 16 167/86 98 01/08/20 08:55 01/08/20 08:55 01/08/20 08:55 01/08/20 08:55 01/08/20 08:55 Vital Signs Reviewed: Yes Appearance: Positive: Well-Appearing - Pt. sitting up in bed in NAD. Skin: Positive: Warm, Dry Head/Face: Positive: Normal Head/Face Inspection Eyes: Positive: Normal, EOMI Neck: Positive: Supple Respiratory/Lung Sounds: Positive: Clear to Auscultation, Breath Sounds Present Cardiovascular: Positive: Normal, RRR Abdomen Description: Positive: Other: - Obese. Abd. is soft with tenderness to LLQ and suprapubic with guarding. No CVA tenderness. Neurological: Positive: Normal, CN Intact II-III Psychiatric: Positive: Affect/Mood Appropriate Procedures - Sedation Patient Received Moderate/Deep Sedation with Procedure: No Diagnostics - Vital Signs Vital Signs Temp Pulse Resp BP Pulse Ox 01/08/20 08:55 98.2 F 79 16 167/86 98 - Laboratory Lab Results: Lab Results 01/08/20 Range/Units 09:00 Group A Strep Rapid Negative (Negative) Result Diagrams: 01/08/20 09:50 01/08/20 09:50 Lab Statement: Any lab studies that have been ordered have been reviewed, and results considered in the medical decision making process. Abdominal Pain Male Course/Dx - Course Assessment/Plan: Pt. with lower abd. pain, diarrhea and nausea. Afebrile and well appearing. Suspect divertic based on hx. Pt. given iv fluids and zofran. Labs unremarkable. CT scan per radiology: IMPRESSION: 1. ABNORMAL MULTILOCULATED RIM-ENHANCING CYSTIC STRUCTURES IN THE UTERUS. FURTHER. EVALUATION BY PELVIC ULTRASOUND RECOMMENDED. CONSIDERATIONS INCLUDE, BUT ARE NOT LIMITED. TO, PELVIC INFLAMMATORY DISEASE. 2. DIVERTICULOSIS. Pelvic u/s : IMPRESSION: 1. THE SAME DAY CT FINDINGS ARE ACCOUNTED FOR BY A POORLY DEFINED CLUSTER OF UTERINE. FIBROIDS. NO UTERINE CYSTIC STRUCTURE IS PRESENT. Ct abd. shows uterine cystic lesion and radiology rec. u/s. U/S consistant with fibroid. Dr. Hilton reviewed abd. ct again after u/s and feels there are early signs of diverticulitis. U.A and labs unremarkable. WIll tx with augmentin based on pt.'s preference. Clear liquid diet. Close fu with pcp and will return to ed for fever, increased pain, vomiting or if concerned. - Diagnoses Differential Diagnosis/HQI/PQRI: Constipation, Diverticulitis Provider Diagnoses: Diverticulitis, Uterine fibroid Discharge ED - Sign-Out/Discharge Documenting (check all that apply): Patient Departure - Discharge Plan Condition: Improved Disposition: HOME Prescriptions: Amoxicillin/Clavulanate TAB* [Augmentin TAB 875*] 875 mg PO BID #20 tab Patient Education Materials: Diverticulitis (ED), Diverticulitis Diet (ED) Referrals: Heather Funez MD [Primary Care Provider] - Additional Instructions: Follow up with PCP in 1 week for recheck Antibiotic as directed Increase fluids Clear liquid diet x 2-3 days Return to ER for increased pain, fever, vomiting, or if concerned - Billing Disposition and Condition Condition: IMPROVED Disposition: Home - Attestation Statements Provider Attestation: I was available for consultation for this patient. I did not evaluate the patient or participate in any medical decision making or disposition decisions unless I am specifically named in the chart as having consulted on the patient. If I have consulted on the patient, please see my own ED note on the patient encounter. Roxana Zhou MD
[2020-01-08] MEDS ORDERED: NS 0.9% 1000 ML** 1,000 ML IV ONE (09:41)
[2020-01-08] MEDS ORDERED: Ondansetron INJ* 2 MG/ML VIAL IV ONE (09:41)
[2020-01-08 10:07] LABS: ABS Eosinophils 0.1 10^3/ul (0-0.6); ABS Lymphocytes 1.3 10^3/ul (1.0-4.8); ABS Monocytes 0.4 10^3/ul (0-0.8); ABS Neutrophils 4.3 10^3/ul (1.5-7.7); Eosinophil % 1.4 %; Hematocrit 40 % (35-47); Hemoglobin 13.8 g/dL (12.0-16.0); Lymphocyte % 21.9 %; Mean Corpuscular HGB Conc 35 g/dL (31-36); Mean Corpuscular Hemoglobin 30 pg (27-31); Mean Corpuscular Volume 85 fL (80-97); Mean Platelet Volume 7.8 fL (7.4-10.4); Platelet Count 223 10^3/uL (150-450); Red Blood Count 4.68 10^6 /uL (3.70-4.87); Red Cell Distribution Width 14 % (10-15); White Blood Count 6.2 10^3/uL (3.5-10.8)
[2020-01-08 10:17] LABS: Calcium 9.3 mg/dL (8.6-10.3); Potassium 4.2 mmol/L (3.5-5.0); Total Bilirubin 0.4 mg/dL (0.2-1.0)
[2020-01-08 10:23] LABS: Albumin/Globulin Ratio 1.3 (1-3); BUN/Creatinine Ratio 10.6 (8-20); C Reactive Protein 3.37 mg/L (<8.01); EGFR Non-African American 71.1 (>60)
[2020-01-08] MEDS ORDERED: Iohexol 300* (CONTRAST) 10 ML SDV IV ONE (10:38)
[2020-01-08 11:32] LABS: Urine Appearance Clear; Urine Bilirubin Negative (Negative); Urine Blood Negative (Negative); Urine Color Straw; Urine Glucose Negative (Negative); Urine Ketones Negative (Negative); Urine Nitrite Negative (Negative); Urine Protein Negative (Negative); Urine Specific Gravity 1.004 (1.010-1.030); Urine Urobilinogen Negative (Negative)
[2020-01-08 11:33] LABS: Urine Bacteria Absent (Absent); Urine Red Blood Cell Trace(0-2/hpf) (Absent); Urine Squamous Epithelial Cell Present (Absent); Urine White Blood Cell Trace(0-5/hpf) (Absent)
[2020-01-08] MEDS ORDERED: Ketorolac INJ* 30 MG/ML 1 ML VIAL IV PUSH ONE (12:45)
[2020-01-08 14:44] VITALS: BP 116/69
== END 2020-01-08 14:43 | disposition home or self-care (01) ==
LOC: ED 08:53
DX: K57.92 Diverticulitis of intestine, part unspecified, without perforation or abscess without bleeding (principal); D25.9 Leiomyoma of uterus, unspecified; I10 Essential (primary) hypertension; Z90.49 Acquired absence of other specified parts of digestive tract; Z79.899 Other long term (current) drug therapy
CPT/HCPCS: 36415; 74177; 76830; 80053; 81003; 81015; 83605; 85025; 86140; 87086; 87651; 96361; 96374; 96375; 99283; J1885; J2405; Q9967